=== PATIENT | female | born 1990 | race African-American/Black ===

== ENCOUNTER 2016-10-24 19:29 | Emergency (ER) | payer OTHER, BC ==
[~2016-10-24] VITALS: Ht 154.9 cm; Wt 52.0 kg
[~2016-10-24 19:29] MED LIST: ZYRT10TA12 PO
[2016-10-24 19:31] VITALS: BP 127/80; PULSE 102; RESP 16; TEMP 98.3; O2SAT 96
[2016-10-24] MEDS ORDERED: DICL50TA3 PO (21:09)
[2016-10-24] MEDS ORDERED: CYCL1TAB29 PO (21:09)
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
[2016-10-24] MEDS ORDERED: KETOROLAC TROMETHAMINE 60 MG/2 ML (IM) VIAL IM ONE (21:15)
[2016-10-24] MEDS ORDERED: ACETAMINOPHEN/HYDROcodone 325 MG/5 MG TAB PO ONE (21:15)
== END 2016-10-25 01:24 | disposition home or self-care (01) ==
LOC: NEPB 19:29
DX: T20.16XA Burn of first degree of forehead and cheek, initial encounter (principal); S80.12XA Contusion of left lower leg, initial encounter; S40.022A Contusion of left upper arm, initial encounter; V49.49XA Driver injured in collision with other motor vehicles in traffic accident, initial encounter; W22.11XA Striking against or struck by driver side automobile airbag, initial encounter; Y92.410 Unspecified street and highway as the place of occurrence of the external cause
CPT/HCPCS: 96372; 99283; J1885